=== PATIENT | male | born 1995 | race Caucasian/White ===

== ENCOUNTER 2017-06-11 09:16 | Emergency (ER) | payer MEDICAID ==
[~2017-06-11] VITALS: Ht 172.7 cm; Wt 45.4 kg
[2017-06-11 09:18] VITALS: Ht 172.7 cm; Wt 45.4 kg
[2017-06-11 11:33] VITALS: BP 126/82
== END 2017-06-11 11:33 | disposition home or self-care (01) ==
LOC: ED 09:16
DX: S01.81XA Laceration without foreign body of other part of head, initial encounter (principal); E86.0 Dehydration; R56.9 Unspecified convulsions; Z88.8 Allergy status to other drugs, medicaments and biological substances; W19.XXXA Unspecified fall, initial encounter; Y93.89 Activity, other specified; Y99.8 Other external cause status; Y92.89 Other specified places as the place of occurrence of the external cause
CPT/HCPCS: 90715; J2060; J7030

== ENCOUNTER 2017-06-20 11:14 | Emergency (ER) | payer OTHER | END 2017-06-20 11:43 | disposition home or self-care (01) | LOC: ED 11:14 | DX: S01.81XD Laceration without foreign body of other part of head, subsequent encounter (principal); X58.XXXD Exposure to other specified factors, subsequent encounter; Z88.8 Allergy status to other drugs, medicaments and biological substances; F84.0 Autistic disorder ==